=== PATIENT | female | born 2005 | race Caucasian/White ===

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

== ENCOUNTER 2025-01-18 10:05 | Outpatient (CLI) | payer OTHER, SELFPAY ==
--- OUTSIDE RECORDS SUMMARY | 2025-01-18 10:49 | XMS_ITS | Encounter Summary ---
Author Organization [facility] Address [address] [place] [address] Care Team Providers Care Chief Fishery Division Name Role Phone Amelie Fry NP Primary Care Provider [phone] Encounter Details Date Type Department Care Team (Late st Contact Info) Description 11/30/2024 Results Follow-Up [facility] [address] [place] [address] Brittany Sheldon MD [address] [place] [address] GTT 50gm 1hr gestational screen, Urine culture Urine, clean voided, HIV 1/2 Antibody plus p24 Antigen Blood, Additional followed-up results: 3 Social History Tobacco Use Types Packs/Day Years Used Date Smoking Tobacco: Never Smokeless Tobacco: Never Hunger Vital Sign Answer Date Recorded Within the past 12 months, y ou worried that your food would run out before you got the money to buy more. Sometimes true Within the past 12 months, t he food you bought just didn't last and you didn't have money to get more. Never true PRAPARE - Transportation Answer Date Re corded In the past 12 months, has l ack of transportation kept you from medical appointments or from getting medications? No 11/12 In the past 12 months, has l ack of transportation kept you from meetings, work, or from getting things needed for daily living? No 11/29/2024 Housing Stability Vital Sign Answer John Paul e Recorded In the last 12 months, was t here a time when you were not able to pay the mortgage or rent on time? No 11/29/2024 In the past 12 months, how m any times have you moved where you were living? 2 11/29/2024 At any time in the past 12 m [facility], were you homeless or living in a prison (including now)? No 11/29/2024 [facility] Utilities Answer Date Recorded In the past 12 months has e electric, gas, oil, or water company threatened to shut off services in your home? No 11/29/2024 Estimated Date of Delivery Comme nts Yes 02/19/2025 Based on last me nstrual period of 05/15/2024 (Exact Date) Sex and Gender Information Value Date Recorded Sex Assigned at Not on file Legal Sex Female 9:51 AM CDT Gender Identity Not on file Sexual Orientation Not on file Occupation Industry Job Start Date Job End Date Not on file Not on file Not on file Not on file documented as of this encounter Plan of Treatment Not on file documented as of this encounter Visit Diagnoses Not on filedocumented in this encounter Care Teams Chief Fishery Division Relationship Specialty Start Date End Date Amelie Fry NP [address] [place] [address] PCP - General 11/28/24 documented as of this encounter
--- OUTSIDE RECORDS SUMMARY | 2025-01-18 10:49 | XMS_ITS | Clinical Summary ---
Author Organization [facility] Address [address] [place] [address] Care Team Providers Care Shellfish Farming Supervisor Name Role Phone Nicoletaty Zofia Soniya COLES Primary Care Provider Active Problems Problem Noted Date Diagnosed Date Cervical pain 03/04/2024 Social History Tobacco Use Types Packs/Day Years Used Date Smoking Tobacco: Never Assessed Comments Unknown Sex and Gender Information Value Date Recorded Sex Assigned at Female 03/29/2024 1:45 PM LUMBER GRADER Legal Sex Female 10:22 AM LUMBER GRADER Gender Identity Not on file Sexual Orientation Not on file Plan of Treatment Health Maintenance Due Date Last Done Comments Annual Physical 02/13/2008 HPV Vaccines (1 - 3-dose series) 02/13/2020 Meningococcal B Vaccine (1 o f 2 - Standard) 2021 Hepatitis C 2023 DTaP, Tdap and Td Vaccines ( 1 - Tdap) 02/13/2024 Hepatitis B Vaccines (1 of 3 - 19+ 3-dose series) 02/13/2024 COVID-19 Vaccine (1 - 2024-2 6 season) 2024 Influenza Adult (#1) 2024 Hepatitis A Vaccines Aged Out No long er eligible based on patient's age to complete this topic Meningococcal Vaccine Aged Out No marck laura [...] Insurance [employer] Care Teams Shellfish Farming Supervisor Relationship Specialty Start Date End Date Zofia Emmanuel NP [address] [place] [address] PCP - General Nurse Practitioner Family 02/21/24
--- OUTSIDE RECORDS SUMMARY | 2025-01-18 10:49 | XMS_ITS | Clinical Summary ---
Author Organization [facility] [place] [address] [place] [address] Care Team Providers Care Outreach Associate Name Role Phone Amelie Fry NP Primary Care Provider [phone] Allergies No known active allergies Medications busPIRone (BUSPAR) 15 mg tablet Take 1 tablet (15 mg total) by mouth 2 (two) times a day 5 Active Vitamin Plus Low Iron 27 mg iron- 1 mg tablet 5 Active ondansetron ODT (ZOFRAN-ODT) 4 mg disintegrating tablet Take 1 tablet (4 mg total) by mouth every 8 (eight) hours as needed for nausea or vomiting 20 tablet 3 5 Active Active Problems Problem Noted Date Diagnosed Date Heart palpitations 12/10/2024 Iron deficiency 12/10/2024 Family history of congenital heart defect 2024 Overview (12/10/2024): FOB's brother. Elects for ECHO - unremarkable 12/10/24. Anxiety and depression 10/25/2024 Overview (10/26/2024): [facility] Estimated Date of Delivery Comme nts Yes 02/19/2025 Based on last me nstrual period of 05/15/2024 (Exact Date) Encounters Date Type Department Care Team Description 01/17/[address] [facility] [address] [place] [address] Brittany Sheldon MD 01/11/2025 3:30 PM CDT Office Visit [facility] [address] [place] [address] Brittany Sheldon MD care, subsequent , third trimester (Primary Dx) 01/01/2025 Telephone [facility] [address] [place] [address] Brittany Sheldon MD Patient issue/concern 12/26/2024 3:50 PM CDT Office Visit [facility] [address] [place] [address] Brittany Sheldon MD care, subsequent , third trimester (Primary Dx) 12/14/2024 11:30 AM CDT Office Visit [facility] [address] [place] [address] Brittany Sheldon MD care, subsequent , third trimester (Primary Dx) 12/10/2024 9:30 AM CDT [facility] [place] [facility] 2nd Floor [address] [place] [phone] Family history of congenital heart disease (Primary Dx) 12/10/2024 9:00 AM CDT - 12/10/2024 11:59 PM CDT Hospital En[facility] 2nd Floor [address] [place] [phone] Family history of congenital heart defect; 28 weeks gestation of ; Encounter for supervision of normal first in third trimester Discharge Disposition: Discharge to home or self care 12/06/2024 Telephone [facility] [address] [place] [address] Brittany Sheldon MD 11/30/2024 Results Follow-Up [facility] [address] [place] [address] Brittany Sheldon MD GTT 50gm 1hr gestational screen, Urine culture Urine, clean voided, HIV 1/2 Antibody plus p24 Antigen Blood, Additional followed-up results: 3 11/30/2024 Telephone [facility] [address] [place] [address] Brittany Sheldon MD Patient issue/concern 11/29/2024 Orders Only [facility] [address] [place] [address] Brittany Sheldon MD Family history of congenital heart defect (Primary Dx); 28 weeks gestation of ; Encounter for supervision of normal first in third trimester 11/28/2024 1:10 PM CDT Office Visit [facility] [address] [place] [address] Brittany Sheldon MD care, subsequent , third trimester (Primary Dx) 11/28/2024 11:20 AM CDT Lab [facility] [address] [place] [address] care, subsequent , second trimester 11/27/2024 Telephone [facility] [address] [place] [address] Brittany Sheldon MD Labs 11/26/2024 Telephone [facility] [address] [place] [address] Brittany Sheldon MD Appointment Reminder Call 10/24/2024 2:00 PM CDT Office Visit [facility] [address] [place] [address] Brittany Sheldon MD care, subsequent , second trimester (Primary Dx) 10/24/2024 1:00 PM CDT Ancillary Procedure [facility] [address] [place] [address] Excessive growth affecting management of , antepartum, single or unspecified fetus 10/22/[address] [facility] [address] [place] [phone] Brittany Sheldon MD Appointment Reminder Call from Last 3 Months Immunizations Immunization Administration Dates Next Due Tdap 11/28/2024 Medical History Medical History Date Comments Anxiety and depression Family History Medical History Relation Name Comments Heart attack Father onset early 20s Diabetes Maternal Grandfather Hypertension Maternal Grandfather Diabetes Maternal Grandmother Hypertension Maternal Grandmother Heart attack Paternal Grandfather cause o f Relation Name Status Comments Father Maternal Grandfather Maternal Grandmother Paternal Grandfather Social History Tobacco Use Types Packs/Day Years [...] any time in the past 12 m [facility], were you homeless or living in a [place] health care facility (including now)? No 11/29/2024 [facility] Utilities Answer Date Recorded In the past 12 months has th e electric, gas, oil, or water company [...] file Not on file Not on file Obstetrics History Para Term AB IAB SAB Ectopic Multiple Livin g Live Births 2 0 0 0 1 0 1 0 0 0 0 Date Outcome GA Total Labor Labor/2nd/3rd Weight Sex Type Anes PTL Elaine A1 A5 Name Clin 2022 SAB 6w0d SAB Current Summary Episode Dates Number of Fetuses Estimated Date of Delivery 10/24/2024 - Present (01/18/2025) 02/19/2025 (set by Brittany Sheldon MD on 10/24/2024 based on Last Menstrual Period on 05/15/2024 (Exact Date)) Dating Summary Based On TONY GA Diff Last Menstrual Period on 05/15/2024 (Exact Date) 02/19/2025 Working Ultrasound on 07/20/2024 02/20/2025 -1d GA:9w2d Alternate TONY Entry 02/23/2025 -4d Comment:Date entered prior t o episode creation Vitals Pregravid Weight Height TWG (As of 01/18/2025) Pregrav id BMI 83.5 kg (184 lb) 169 cm (5' 6.54) 18.1 kg (40 lb) 29. 22 Notes Progress Notes - Office Visi t - 01/11/2025 - GA:34w3d 01/11/2025 - 34w3d - Brittany Sheldon MD Has not tried Pepcid, overall tolerable heartburn. Feels tightening and irregular cramping at times. Discussed kick counts/ movement monitoring as well as PTL precautions. GBS next visit. Progress Notes - Office Visi t - 12/26/2024 - GA:32w1d 12/26/2024 - 32w1d - Brittany Sheldon MD Has noticed increased pedal edema. Advised elevation, hydration, compression socks. PCP offered home exercises and PT for dizziness, which she declines at this time. Progress Notes - Office Visi t - 12/14/2024 - GA:30w3d 12/14/2024 - 30w3d - Brittany Sheldon MD Reviewed normal labs, unremarkable ECHO. Holter monitor reportedly showed mostly sinus rhythm. She is scheduled to see PCP 12/17 to discuss in more detail. Has had more nausea and dizziness the last 2 days. Rx sent for zofran PRN. Dizziness can occur at rest or when moving, riding in a car. Feels like things around her are spinning. Denies tunnel vision or tinnitus. Discussed possible vertigo - will reassess with PCP as scheduled. Progress Notes - Office Visi t - 11/28/2024 - GA:28w1d 11/28/2024 - 28w1d - Brittany Sheldon MD Reviewed option of ECHO. She agrees to same; referral sent. Worse Holter x 3 days - results pending. Palpitations are less frequent, every few days. Precautions reviewed. Labs pending, Tdap today. Reviewed pain management options in labor. Progress Notes - Office Visi t - 10/24/2024 - GA:23w1d 10/24/2024 - 23w1d - Brittany Sheldon MD New OB - transfer of care from [facility] - records received and reviewed. TONY 02/19 by definite LMP c/w 9 wk ultrasound. Sono today - cephalic, anterior placenta, RAMA 19.4, EFW 549 g (33%). 28-wk labs ordered for next visit. -- Anxiety/depression- managed by psych through [facility] Dept. Stable on Buspirone. Discussed risks of poorly controlled maternal mental health v medication exposure. Continue current management. -- Family hx - FOB's brother with congenital heart defect, repaired as an adult. Discussed risks, option of ECHO which she will consider. -- [place] ED visit 10/12 c/o palpitations. Labs, CXR and EKG were reportedly unremarkable. She followed up with PCP, Amelie Fry NP - started continuous glucose monitoring with plan for Holter monitor. H/o palpitations prior to , more frequent now. No syncope. Discussed common changes in and precautions given. Eat regular meals/snacks with adequate hydration. Growth Chart Information Age Height Weight [id number] th Percentile BMI Percentile Head Circum Head Circum Percentile Date 19 years 101.6 kg (224 lb) 2024 19 years 99.8 kg (220 lb) 2024 19 years 169 cm (5' 6.54) 95.8 kg (211 lb 3.2 oz) 95.97%* 2024 19 years 169 cm (5' 6.54) 96.2 kg (212 lb 1.3 oz) 96.04%* 2024 19 years 94.8 kg (209 lb) 2024 19 years 165.1 cm (5' 5) 90.7 kg (200 lb) 95.90%* 2024 * CDC (Girls, 2-20 Years) Last Filed Vital Signs Vital Sign Reading Time Taken Comments Blood Pressure 110/74 01/11/2025 3:15 PM CDT Pulse - - Temperature - - Respiratory Rate - - Oxygen Saturation - - Inhaled Oxygen Concentration - - Weight 101.6 kg (224 lb) 01/11/2025 3:15 PM CDT Height 169 cm (5' 6.54) 12/14/2024 11:33 AM CDT Body Mass Index 35.58 12/14/2024 11:33 AM CDT Plan of Treatment Health Maintenance Due Date Last Done Comments Chlamydia and Gonorrhea (GC/ CT) Screening 2005 Depression Screening 2005 Varicella Vaccines (1 of 2 - 13+ 2-dose series) 2018 HPV Vaccines (1 - 3-dose series) 02/13/2020 Meningococcal B Vaccine (1 o f 2 - Standard) 2021 Hepatitis B Screening 2023 Regular Well Visit/Exam 18-64 2023 Influenza Vaccine (#1) 2024 DTaP/Tdap/Td Vaccine (2 - Td or Tdap) 11/28/2034 11/28/2024 Hepatitis C Screening Completed 08/29/2024 Meningococcal Vaccine Aged Out No marck laura eligible based on patient's age to complete this topic Pneumococcal vaccine <65 Aged Out No longer eligible based on patient's age to complete this topic Procedures Procedure Name Priority Date/Time Associated Diagnosis Comments POCT URINE GLUCOSE AND PROTEIN Routine 01/11/2025 3:21 PM CDT care, subsequent , third trimester POCT URINE GLUCOSE AND PROTEIN Routine 12/26/2024 3:45 PM CDT care, subsequent , third trimester POCT URINE GLUCOSE AND PROTEIN Routine 12/14/2024 12:02 PM CDT care, subsequent , third trimester ECHOCARDIOGRAM STAT 12/10/2024 11:15 AM CDT Family history of congenital heart defect 28 weeks gestation of Encounter for supervision of normal first in third trimester DIFFERENTIAL AUTO Routine 11/28/2024 11: 18 AM CDT care, subsequent , second trimester CBC WITH AUTO DIFFERENTIAL Routine 11/28/2024 11:18 AM CDT care, subsequent , second trimester GTT 50GM 1HR GESTATIONAL SCREEN Routine 11/28/2024 11:18 AM CDT care, subsequent , second trimester RPR Routine 11/28/2024 11:18 AM CDT care, subsequent , second trimester HIV 1/2 ANTIBODY PLUS P24 ANTIGEN Routine 11/28/2024 11:18 AM CDT care, subsequent , second trimester URINE CULTURE Routine 11/28/2024 11:18 AM CDT care, subsequent , second trimester US OB 14 WEEKS OR OVER Schedule Routine, Read Routine (OP Routine) 10/24/2024 1:37 PM CDT Excessive growth affecting management of , antepartum, single or unspecified fetus HEPATITIS C ANTIBODY Routine 08/29/2024 from Last 3 Months or Most Recently Relevant to Health Maintenance Results * POCT urine glucose and protein (01/11/2025 3:21 PM CDT) Glucose, ur, POC Negative Negative Protein, ur, POC Negative Negative Lot Number [id number] Urine 01/11/2025 3:21 PM CDT Brittany Sheldon MD POINT OF CARE TEST OR DERABLES Final Result * (ABNORMAL) POCT urine glucose and protein (12/26/2024 3:45 PM CDT) Glucose, ur, POC Negative Negative Protein, ur, POC Trace(A) Negative Lot Number [id number] Urine 12/26/2024 3:45 PM CDT us Brittany Sheldon MD POINT OF CARE TEST OR DERABLES Final Result * POCT urine glucose and protein (12/14/2024 12:02 PM CDT) Glucose, ur, POC Negative Negative Protein, ur, POC Negative Negative Lot Number [id number] Urine 12/14/2024 12:0 2 PM CDT us Brittany Sheldon MD POINT OF CARE TEST OR DERABLES Final Result * Echocardiogram (12/10/2024 11:15 AM CDT) Anatomical Region Laterality Modality Ultrasound 12/10/2024 9:20 AM CDT Narrative 12/10/2024 12:21 PM CDT [facility] Echo Report [address] [address] Patient Name: MATT RICH Study Type: Echo Patient : 2005 Exam Date: 12/10/2024 Age: 19Y Exam Time: 9:20:00 AM Referring MD: LAKISHA TOMPKINS Height: 169.01cm Weight: 96.2kg BSA: 2.06 m2 Sex: FEMALE BP: 133/74 Medical Donation Professional: Oliva Bravo. Stat.: Outpatient Account:[id number] Indications for Study:FAMILY HX OF CHD V17.4 Procedures: Echocardiogram SUMMARY: Initial echocardiogram (2D, color, Doppler) performed on a 29.6 week single fetus TONY (02/19/2025). Study quality is fair The fetus is in the vertex position. Impression: Grossly normal cardiac structure and function Balanced four chamber view with qualitatively normal systolic function. There is levocardia noted. Normally related great vessels. No inflow or outflow tract obstruction. No obvious VSD. No valvar regurgitation. Unobstructed aortic and ductal arches. Left aortic arch. At least 2 pulmonary veins drain normally to the LA. Normal systemic venous return. Normal heart rate 142 with 1:1 AV conduction. No pericardial effusion. Three vessel cord noted, with normal Doppler pattern. Normal ductus venosus Doppler. Atria: Situs: Solitus. RA Size: Normal. LA Size: Normal. Septum: PFO. Defect sz. Moderate Shunt: [id number] Ventricles: D-looped LV size: Normal. LV function:Normal. Rv size: Normal. RV function: Normal. IVS: Motion: Normal. Defect Type/Size: None./None. Shunt: None. Grt Vessls: Normal. Aortic Root: Normal. MPA: Normal LPA: Normal. RPA: Normal. Aortic Arch: Unobstructed Ductus Arteriosus: 113 cm/sec Systm Veins: SVC: Normal. IVC: Normal. Pulm Veins: Visualized: 2/4. Connections: Normal. Pericardium: Normal Mitral Valve: Biphasic Structure: Normal. Stenosis: No. Regurgitation: No. Tricuspid Valve: Biphasic Structure: Normal. Stenosis:No. Regurgitation: No. Pulmonary Valve: Flow velocity 66 cm/sec Structure: Normal. Stenosis: No. Regurgitation: No. Aortic Valve: Flow velocity 74 cm/sec Structure: Normal. Stenosis: No. Regurgitation: No. Pulsatility index: Ductal Arch: 2.20 Umb Artery: 1.21 MCA: cardiac rhythm: 1:1 AV conduction Rate: 142 bpm FINDINGS: Signed 12/10/2024 12:21 PM Sammi Messina MD Procedure Note Sammi Messina MD - 12/10/2024 [facility] Echo Report [address] [address] Patient Name: MATT RICH Study Type: Echo Patient : 2005 Exam Date: 12/10/2024 Age: 19Y Exam Time: 9:20:00 AM Referring MD: LAKISHA TOMPKINS Height: 169.01cm Weight: 96.2kg BSA: 2.06 m2 Sex: FEMALE BP: 133/74 Medical Donation Professional: Oliva Bravo Pat. Stat.: Outpatient Account:[id number] Indications for Study:FAMILY HX OF CHD V17.4 Procedures: Echocardiogram SUMMARY: Initial echocardiogram (2D, color, Doppler) performed on a 29.6 week single fetus TONY (02/19/2025). Study quality is fair The fetus is in the vertex position. Impression: Grossly normal cardiac structure and function Balanced four chamber view with qualitatively normal systolic function. There is levocardia noted. Normally related great vessels. No inflow or outflow tract obstruction. No obvious VSD. No valvar regurgitation. Unobstructed aortic and ductal arches. Left aortic arch. At least 2 pulmonary veins drain normally to the LA. Normal systemic venous return. Normal heart rate 142 with 1:1 AV conduction. No pericardial effusion. Three vessel cord noted, with normal Doppler pattern. Normal ductus venosus Doppler. Atria: Situs: Solitus. RA Size: Normal. LA Size: Normal. Septum: PFO. Defect sz. Moderate Shunt: [id number]-ub-Clwc Ventricles: D-looped LV size: Normal. LV function:Normal. Rv size: Normal. RV function: Normal. IVS: Motion: Normal. Defect Type/Size: None./None. Shunt: None. Grt Vessls: Normal. Aortic Root: Normal. MPA: Normal LPA: Normal. RPA: Normal. Aortic Arch: Unobstructed Ductus Arteriosus: 113 cm/sec Systm Veins: SVC: Normal. IVC: Normal. Pulm Veins: Visualized: 2/4. Connections: Normal. Pericardium: Normal Mitral Valve: Biphasic Structure: Normal. Stenosis: No. Regurgitation: No. Tricuspid Valve: Biphasic Structure: Normal. Stenosis:No. Regurgitation: No. Pulmonary Valve: Flow velocity 66 cm/sec Structure: Normal. Stenosis: No. Regurgitation: No. Aortic Valve: Flow velocity 74 cm/sec Structure: Normal. Stenosis: No. Regurgitation: No. Pulsatility index: Ductal Arch: 2.20 Umb Artery: 1.21 MCA: cardiac rhythm: 1:1 AV conduction Rate: 142 bpm FINDINGS: Signed 12/10/2024 12:21 PM Sammi Messina MD us Brittany Sheldon MD CV ECHO PROCEDURES Fi nal Result * (ABNORMAL) Differential, auto (11/28/2024 11:18 AM CDT) Pathologist [facility] Neutrophil abs 11.90(H) 1.50 - 6.50 K/cumm Comment:Testing performed by : [address], [address] Imm gran abs 0.84(H) 0.00 - 0.10 K/cumm CERNER Comment:Testing performed by : [address], [address] Lymphocyte abs 1.32 0.80 - 3.30 K/cumm CERNER Comment:Testing performed by : [address], [address] Monocyte abs 1.03(H) 0.20 - 0.80 K/cumm CERNER Comment:Testing performed by : [address], [address] Eosinophil abs 0.21 0.00 - 0.50 K/cumm CERNER Comment:Testing performed by : [address], [address] Basophil abs 0.14(H) 0.00 - 0.10 K/cumm CERNER Comment:Testing performed by : [address], [address] Neutrophil pct 77.1 % CERNER Comment: Interpretive Data Percent cell count reference ranges are not reported, since discordance with absolute values may lead to misinterpretation of CBC data. Current Interpretive Data was last revised on 2017. Testing performed by: [facility], [address] [place] [address]., [address] Imm gran pct 5.4 % CERNER Comment: Interpretive Data Percent cell count reference ranges are not reported, since discordance with absolute values may lead to misinterpretation of CBC data. Current Interpretive Data was last revised on 2017. Testing performed by: [facility], [address] [place] [address]., [address] Lymphocyte pct 8.5 % CERNER Comment: Interpretive Data Percent cell count reference ranges are not reported, since discordance with absolute values may lead to misinterpretation of CBC data. Current Interpretive Data was last revised on 2017. Testing performed by: [facility], [address] [place] [address]., [address] Monocyte pct 6.7 % CERNER Comment: Interpretive Data Percent cell count reference ranges are not reported, since discordance with absolute values may lead to misinterpretation of CBC data. Current Interpretive Data was last revised on 2017. Testing performed by: [facility], [address] [place] [address]., [address] Eosinophil pct 1.4 % CERNER Comment: Interpretive Data Percent cell count reference ranges are not reported, since discordance with absolute values may lead to misinterpretation of CBC data. Current Interpretive Data was last revised on 2017. Testing performed by: [address] [address] Basophil pct 0.9 % [facility] Comment: Interpretive Data Percent cell count reference ranges are not reported, since discordance with absolute values may lead to misinterpretation of CBC data. Current Interpretive Data was last revised on 2017. Testing performed by: [address] [address] Blood 11/28/2024 11:1 8 AM CDT 11/28/2024 6:59 PM CDT us Brittany Sheldon MD LAB BLOOD ORDERABLES Final Result PHANI [address] [facility] Department [place] [address] * GTT 50gm 1hr gestational screen (11/28/2024 11:18 AM CDT) GTT 50g gest screen 123 <=140 mg/dL Comment: Interpretive Data Used for suspected gestational diabetes. The screening test uses 50 grams of glucose with sample obtained 1 hr later. Normal range: < 140 mg/dL. A glucose value of >140 mg/dL generally indicates the need for a full diagnostic tolerance test. Reference Interval Info: Diabetes Care 2005, Vol 28. Supplement 1,S37-S42. Report of the Expert Committee on the Diagnosis and Classification of Diabetes Mellitus. Diabetes Care 2020; 43(Supplement 1):S14-31. Current interpretive data was last revised on 2020. Testing performed by: [address] [address] Blood 11/28/2024 11:1 8 AM CDT 11/28/2024 6:59 PM CDT Brittany Sheldon MD LAB BLOOD ORDERABLES Final Result Performing Organization Address City/[facility]/ZIP Co de Phone Number PHANI [address] [address] Department [place] [address] * HIV 1/2 Antibody plus p24 Antigen Blood (11/28/2024 11:18 AM CDT) Pathologist [facility] HIV 1/2 ab + p24 ag Nonreactive Nonreactive Comment: Nonreactive for HIV-1 antigen and HIV-1/HIV-2 antibodies. No laboratory evidence of HIV infection. If acute HIV infection is suspected, consider testing for HIV-1 RNA. Testing performed by: [address] [address] Blood 11/28/2024 11:1 8 AM CDT 11/28/2024 6:59 PM CDT Brittany Sheldon MD LAB MICROBIOLOGY - GE NERAL ORDERABLES Final Result PHANI [address] Department [place] [address] * (ABNORMAL) CBC with auto differential (11/28/2024 11:18 AM CDT) WBC 15.44(H) 3.80 - 9.90 K/cumm Comment:Testing performed by : [address], [address] Hgb 12.6 11.9 - 15.5 g/dL CERNER Comment:Testing performed by : [address], [address] Hct 39.2 35.6 - 45.5 % CERNER Comment:Testing performed by : [address], [address] Plt 319 150 - 400 K/cumm CERNER CH Comment:Testing performed by : [address], [address] MPV 9.4 9.1 - 12.3 fL CERNER CH Comment:Testing performed by : [address], [address] RBC 4.27 3.90 - 5.20 M/cumm CERNER CH Comment:Testing performed by : [address], [address] MCV 91.8 81.3 - 96.4 fL CERNER CH Comment:Testing performed by : [address], [address] MCH 29.5 27.1 - 33.3 pg CERNER CH Comment:Testing performed by : [address], [address] MCHC 32.1(L) 32.3 - 35.7 g/dL CERNER CH Comment:Testing performed by : [address], [address] RDW CV 12.5 11.1 - 14.9 % CERNER CH Comment:Testing performed by : [address], [address] RDW SD 41.7 35.7 - 48.1 fL CERNER CH Comment:Testing performed by : [address], [address] NRBC abs 0.00 0.00 - 0.01 K/cumm PHANI Comment:Testing performed by : [facility], [address] [place] [address]., [address] Blood 11/28/2024 11:1 8 AM CDT 11/28/2024 6:59 PM CDT Brittany Sheldon MD LAB BLOOD ORDERABLES Final Result Performing Organization Address City/[facility] Co de Phone Number PHANI [phone] [facility] Department [place] [address] * RPR Blood (11/28/2024 11:18 AM CDT) RPR Nonreactive Nonreactive Comment:Testing performed by : [facility], [address] [place] [address], [address] Blood 11/28/2024 11:1 8 AM CDT 11/28/2024 6:59 PM CDT Brittany Sheldon MD LAB MICROBIOLOGY - GE NERAL ORDERABLES Final Result Performing Organization Address [facility] Co de Phone Number PHANI [phone] [facility] [place] [address] * Urine culture Urine, clean voided (11/28/2024 11:18 AM CDT) Report Final Report: Less than 100,000 colonies/mL (clinically insignificant growth based on current clinical standards) Comment:Testing performed by : [facility], [address] [facility] [place]., [address] Organism (CLINICALLY INSIGNIFICANT GROWTH PHANI Urine, clean voided 11/28/2024 11:18 AM CDT 11/28/2024 10:23 PM CDT Narrative PHANI - 11/30/2024 6:50 AM CDT Testing performed by [facility] ([phone]) Brittany Sheldon MD LAB MICROBIOLOGY - [employer] ORDERABLES Final Result PHANI [address] Department [place] [address] * US Ob 14 Weeks Or Over (10/24/2024 1:37 PM CDT) Anatomical Region Laterality Modality Abdomen N/A Ultrasound 11/12/2024 1:40 PM CDT Narrative 11/12/2024 1:43 PM CDT EXAM DESCRIPTION: US OB 14 WEEKS OR OVER REASON FOR STUDY: Size , Check measurements and fluid levels S>D anatomy scan evaluation of anatomy. TECHNIQUE: Multiple static transabdominal images of the pelvis were submitted for review. COMPARISON: None. FINDINGS: Gestational age estimated by this US: 22 weeks 4 days EDC estimated by this US: 02/23/2025 EFW estimated by this US: 550 g EFW is at the 33% based upon the provided EDC or prior US if available. Placenta is located: Anterior, grade 2, without evidence of previa position: Cephalic heart rate: 154 bpm Amniotic Fluid index: 19.4 cm. Maximum vertical pocket: 5.5 cm (normal range 2-8 cm). ANATOMY: Three-vessel cord: Normal Intracranial anatomy: Normal heart (4 chamber): Normal spine: Normal stomach: Normal renal fossa (the area): Normal urinary bladder: Normal Cord insertion/abdominal wall: Normal MEASUREMENTS: The femoral length to head circumference ratio is 18.73, which is slightly less than the normal range (18.86-20.54). The remainder of the measurements and ratios are grossly within normal limits. IMPRESSION: 1. Single live intrauterine gestation identified with gestational age by this ultrasound of 22 weeks 4 days and EDC by this ultrasound is 02/23/2025. Grossly unremarkable anatomy survey. 2. Estimated weight is 550 g, which is at the 33rd percentile. 3. Normal amniotic fluid index of 19.4 cm with maximum vertical pocket measuring 5.5 cm. THIS IS AN ELECTRONICALLY VERIFIED FINAL REPORT 11/12/2024 1:43 PM - Electronically signed by Shantal England D.O. PS: PS Report ID: [id number] Reading Location: [id number] Procedure Note Tomás Shantal Adán, DO - 11/12/2024 EXAM DESCRIPTION: US OB 14 WEEKS OR OVER REASON FOR STUDY: Size , Check measurements and fluid levels S>D anatomy scan evaluation of anatomy. TECHNIQUE: Multiple static transabdominal images of the pelvis weresubmitted for review. COMPARISON: None. FINDINGS: Gestational age estimated by this US: 22 weeks 4 days EDC estimated by this US: 02/23/2025 EFW estimated by this US: 550 g EFW is at the 33% based upon the provided EDC or prior US if available. Placenta is located: Anterior, grade 2, without evidence of previa position: Cephalic heart rate: 154 bpm Amniotic Fluid index: 19.4 cm. Maximum vertical pocket: 5.5 cm (normal range 2-8 cm). ANATOMY: Three-vessel cord: Normal Intracranial anatomy: Normal heart (4 chamber): Normal spine: Normal stomach: Normal renal fossa (the area): Normal urinary bladder: Normal Cord insertion/abdominal wall: Normal MEASUREMENTS: The femoral length to head circumference ratio is 18.73, which isslightly less than the normal range (18.86-20.54). The remainder of the measurements and ratios are grossly within normal limits. IMPRESSION: 1. Single live intrauterine gestation identified with gestational age by this ultrasound of 22 weeks 4 days and EDC by this ultrasound is 02/23/2025. Grossly unremarkable anatomy survey. 2. Estimated weight is 550 g, which is at the 33rd percentile. 3. Normal amniotic fluid index of 19.4 cm with maximum vertical pocket measuring 5.5 cm. THIS IS AN ELECTRONICALLY VERIFIED FINAL REPORT 11/12/2024 1:43 PM - Electronically signed by Shantal England D.O. PS: PS Report ID: [id number] Reading Location: [id number] Brittany Sheldon MD IMG OB US PROCEDURES Final Result * Hepatitis C antibody Blood (08/29/2024) Hep C Ab negative Blood Brittany Sheldon MD LAB MICROBIOLOGY - [facility] ORDERABLES Final Result from Last 3 Months or Most Recently Relevant to Health Maintenance Insurance [facility] ANTH ACCESS [facility] Care Teams Outreach Associate Relationship Specialty Start Date End Date Amelie Fry NP [address] [place] [address] PCP - General 11/28/24
--- OUTSIDE RECORDS SUMMARY | 2025-01-18 10:49 | XMS_ITS | Encounter Summary ---
Author Organization [facility] Healthcare Address [address] [place] [address] Care Team Providers Care Tool Lathe Operator Name Role Phone Amelie Fry NP Primary Care Provider [phone] Encounter Details Date Type Department Care Team (Late st Contact Info) Description 01/17/2025 Telephone [facility] [address] [place] [id number] Brittany Sheldon MD [address] [place] [address] Social History Tobacco Use Types Packs/Day Years [...] any time in the past 12 m [facility], were you homeless or living in a custodial (including now)? No 11/29/2024 [facility] Utilities Answer Date Recorded In the [...] on file documented as of this encounter Miscellaneous Notes * Telephone Encounter - Madison Castro LPN - 01/17/2025 4:29 PM PRINCIPAL ACCOUNT CLERK Pt aware CIPAL ACCOUNT CLERK * Telephone Encounter - Brittany Sheldon MD - 01/17/2025 4:25 PM PRINCIPAL ACCOUNT CLERK H pylori is a bacteria associated with acid reflux. If her PCP feels testing is needed, then okay for same. CIPAL ACCOUNT CLERK * Telephone Encounter - Madison Castro LPN - 01/17/2025 3:25 PM PRINCIPAL ACCOUNT CLERK Pts tested positive for H pylori on Jan 17. Pt is concerned and wants to be tested which [facility] can do and can do that today but Pt wants to know if there was anything we would need or want from her? CB to clinic [phone] CIPAL ACCOUNT CLERK documented in this encounter Plan of Treatment Not on file documented as of this encounter Visit Diagnoses Not on filedocumented in this encounter Care Teams Tool Lathe Operator Relationship Specialty Start Date End Date Amelie Fry NP [address] [place] [address] PCP - General 11/28/24 documented as of this encounter
--- OUTSIDE RECORDS SUMMARY | 2025-01-18 10:49 | XMS_ITS | Clinical Summary ---
Author Organization [facility] Address [address] [place] [address] Phone Care Team Providers Care Inspector Eyeglass Frames Name Role Phone Amelie Fry STUDENT SUCCESS COUNSELOR, MEAT SMOKER Primary Care Provi shelia Danny Silverio MD Unavailable [phone] Medications No known medications Active Problems Problem Noted Date Diagnosed Date Adjustment disorder with mixed anxiety and depre ssed mood 06/22/2024 Social History Tobacco Use Types Packs/Day Years [...] Immunization (1 of 2 - Standard) 2021 Influenza Immunization (#1) 2024 12/14/2016 SARS-COV-2 Immunization ( - season) 2024 Respiratory Syncytial Virus (RSV) Immunization (Adult) [...] ANXIETY Anxiety On track(2024 3:06 PM CDT) Shayla Souza, DIE SIZER Note: Goal/Objective: Increase coping skills, stress management tools and focus on self care. Anticipated Time Frame for Goal Completion: 6 months Goal Reviewed with: patient and partner Readiness to change: Ready to change Department associated with goal: [facility] Steps to achieve goal: [...] On track(2024 3:06 PM CDT) Yes Shayla Carrizales, DIE SIZER Note: To go one full week without fighting Goal/Objective: Increase communication strategies and skills. Anticipated Time Frame for Goal Completion: 6 months Goal Reviewed with: patient and partner Readiness to change: Ready to change Department associated with goal: [facility] Steps to achieve goal: [...] 1x/month at least 6 sessions Insurance MEDICAID [facility] Care Teams Inspector Eyeglass Frames Relationship Specialty Start Date End Date Amelie Fry, STUDENT SUCCESS COUNSELOR, MEAT SMOKER [address] [place] [address] PCP - General Advanced Practice Nurse 06/12/24 Danny Silverio MD [address] [place] [address] Family Medicine 06/12/24
== END 2025-01-18 10:06 | disposition home or self-care (01) ==
LOC: CHSLAB 10:06
PROVIDERS: PCP Nurse Practitioner Family; Visit Provider Nurse Practitioner Family
DX: Z13.810 Encounter for screening for upper gastrointestinal disorder (principal)
CPT/HCPCS: 83013